=== PATIENT | female | born 1955 | race Caucasian/White ===

== ENCOUNTER 2017-01-26 16:55 | Emergency (ER) | payer SELFPAY ==
[~2017-01-26] VITALS: Ht 157.5 cm; Wt 75.0 kg
[2017-01-26 17:07] VITALS: BP 122/68; PULSE 99; RESP 20; TEMP 98.4; O2SAT 97
--- NOTE | 2017-01-26 20:05 | PD ---
HPI Chief Complaint: Edema Time Seen by Provider: 19:51 Travel History International Travel<30 days: No Contact w/Intl Traveler<30days: No Traveled to known affect area: No History of Present Illness HPI 61-year-old female complains of redness swelling bilateral lower extremity. Patient states that the symptoms started about 3 weeks ago. Patient was seen at a hospital outside the [facility] and was given prescription for clindamycin and Bactrim DS. Patient states that she finished the medications about 2 weeks ago. Patient states that the symptoms get worse since then. Patient denies any headache. Patient denies any chest pain or shortness of breath. Patient denies abdominal pain. Patient denies any focal weakness or numbness of extremity. Patient states that she has history of hypertension, diabetes, hyperlipidemia, chronic kidney disease, CHF, peripheral vascular disease and Raynaud's. Patient states that she does not have a local physician in [facility]. PFSH Social History Tobacco Use: No Allergies-Medications (Allergen,Severity, Reaction): Coded Allergies: cephalexin (Verified Allergy, Severe, Anaphylaxis, 01/26/17) penicillin G (Verified Allergy, Severe, Anaphylaxis, 01/26/17) vancomycin (Verified Allergy, Severe, EDEMA, 01/26/17) Reported Meds & Prescriptions Reported Meds & Active Scripts Active [Bactroban Oint] 1 Applic TOPICAL BID Bactrim DS (Sulfamethoxazole-Trimethoprim) 800-160 Mg Tab 1 Tab PO BID Clindamycin (Clindamycin HCl) 300 Mg Cap 300 Mg PO Q6H Review of Systems General / Constitutional: No: Fever Eyes: No: Visual changes HENT: No: Headaches Cardiovascular: No: Chest Pain or Discomfort Respiratory: No: Shortness of Breath Gastrointestinal: No: Abdominal Pain Genitourinary: No: Dysuria Musculoskeletal: Positive: Edema Skin: No Rash Neurologic: No: Weakness Psychiatric: No: Depression Endocrine: No: Polydipsia Hematologic/Lymphatic: No: Easy Bruising Physical Exam Narrative GENERAL: Well-nourished, well-developed patient. SKIN: Focused skin assessment warm/dry. HEAD: Normocephalic. EYES: No scleral icterus. No injection or drainage. NECK: Supple, trachea midline. No JVD or lymphadenopathy. CARDIOVASCULAR: Regular rate and rhythm without murmurs, gallops, or rubs. RESPIRATORY: Breath sounds equal bilaterally. No accessory muscle use. GASTROINTESTINAL: Abdomen soft, non-tender, nondistended. MUSCULOSKELETAL: Patient had +1 pitting edema lower extremity. Multiple lesions on the lower extremity associated with redness swelling. No induration and no discharge. Negative Homans sign. BACK: Nontender without obvious deformity. No CVA tenderness. Neurologic exam normal. Data Data Last Documented VS Vital Signs Date Time Temp Pulse Resp B/P (MAP) Pulse Ox O2 Delivery O2 Flow Rate FiO2 01/26/17 23:30 01/26/17 23:00 71 15 99 01/26/17 22:00 Room Air 01/26/17 17:07 98.4 Orders Orders Complete Blood Count With Diff (01/26/17 19:58) Comprehensive Metabolic Panel (01/26/17 19:58) B-Type Natriuretic Peptide (01/26/17 19:58) Prothrombin Time / Inr (Pt) (01/26/17 19:58) Act Partial Throm Time (Ptt) (01/26/17 19:58) Thyroid Stimulating Hormone (01/26/17 19:58) Chest, Single Ap (01/26/17 19:58) Iv Access Insert/Monitor (01/26/17 19:58) Ecg Monitoring (01/26/17 19:58) Oximetry (01/26/17 19:58) Clindamycin Inj (Cleocin Inj) (01/26/17 20:15) Ed Discharge Order (01/26/17 22:39) Labs Laboratory Tests Test 01/26/17 20:50 White Blood Count 8.3 TH/MM3 Red Blood Count 3.78 MIL/MM3 Hemoglobin 10.2 GM/DL Hematocrit 30.7 % Mean Corpuscular Volume 81.2 FL Mean Corpuscular Hemoglobin 27.0 PG Mean Corpuscular Hemoglobin Concent 33.3 % Red Cell Distribution Width 16.0 % Platelet Count 305 TH/MM3 Mean Platelet Volume 7.8 FL Neutrophils (%) (Auto) 73.9 % Lymphocytes (%) (Auto) 15.6 % Monocytes (%) (Auto) 6.1 % Eosinophils (%) (Auto) 3.9 % Basophils (%) (Auto) 0.5 % Neutrophils # (Auto) 6.1 TH/MM3 Lymphocytes # (Auto) 1.3 TH/MM3 Monocytes # (Auto) 0.5 TH/MM3 Eosinophils # (Auto) 0.3 TH/MM3 Basophils # (Auto) 0.0 TH/MM3 CBC Comment DIFF FINAL Differential Comment Prothrombin Time 10.2 SEC Prothromb Time International Ratio 0.9 RATIO Activated Partial Thromboplast Time 24.4 SEC Blood Urea Nitrogen 24 MG/DL Creatinine 0.69 MG/DL Random Glucose 98 MG/DL Total Protein 7.9 GM/DL Albumin 3.9 GM/DL Calcium Level 8.6 MG/DL Alkaline Phosphatase 88 U/L Aspartate Amino Transf (AST/SGOT) 31 U/L Alanine Aminotransferase (ALT/SGPT) 31 U/L Total Bilirubin 0.5 MG/DL Sodium Level 139 MEQ/L Potassium Level 3.7 MEQ/L Chloride Level 106 MEQ/L Carbon Dioxide Level 24.8 MEQ/L Anion Gap 8 MEQ/L Estimat Glomerular Filtration Rate 87 ML/MIN B-Type Natriuretic Peptide 12 PG/ML Thyroid Stimulating Hormone 3rd Gen 0.701 uIU/ML MDM Medical Decision Making Medical Screen Exam Complete: Yes Emergency Medical Condition: Yes Interpretation(s) 22:27 PM. Last Impressions Chest X-Ray 01/26/171957 Signed Impressions: Service Date/Time: Thursday, January 26, 2017 20:05 - CONCLUSION: No acute cardiopulmonary disease. Thor Morgan MD 22:27 PM. CBC within normal limit. CMP within normal limit. BNP 12. Differential Diagnosis Differential diagnosis including cellulitis, abscess. Narrative Course 61-year-old female with redness swelling infected lesion by lateral lower extremity. Patient was treated for the same 3 weeks ago. Clindamycin 300 mg IV given. Diagnosis Primary Impression: Cellulitis of lower extremity Qualified Codes: L03.119 - Cellulitis of unspecified part of limb Patient Instructions: General Instructions Additional Instructions: Clindamycin and Bactrim DS as directed. Bactroban ointment as directed. Follow -up with personal physician. Return if worse. Med/Other Pt SpecificInfo: Prescription(s) given Scripts [Bactroban Oint] No Conflict Check 1 APPLIC TOPICAL BID, #1 Prov: Shelton Fuller MD 01/26/17 Sulfamethoxazole-Trimethoprim (Bactrim DS) 800-160 Mg Tab 1 TAB PO BID for Infection, #20 TAB 0 Refills Prov: Shelton Fuller MD 01/26/17 Clindamycin (Clindamycin) 300 Mg Cap 300 MG PO Q6H for Infection, #40 CAP 0 Refills Prov: Shelton Fuller MD 01/26/17 Disposition: 01 DISCHARGE HOME Condition: Stable Shelton Fuller MD Jan 26, 2017 20:05
[2017-01-26] MEDS ORDERED: CLINDAMYCIN INJ 300 MG in SODIUM CHLORIDE 0.9% INJ 100 ML IV ONE (20:15)
--- NOTE | 2017-01-26 20:58 | RADRPT ---
EXAM DATE/TIME: 01/26/2017 20:05 [facility] COMPARISON: No previous studies available for comparison. INDICATIONS : Shortness of breath and bilateral leg swelling. MEDICAL HISTORY : Congestive heart failure. Hypertension Asthma SURGICAL HISTORY : None. ENCOUNTER: Initial ACUITY: 1 day PAIN SCORE: 0/10 LOCATION: Bilateral chest FINDINGS: The lungs are clear without infiltrate, nodule, or mass. There is no appreciable pleural effusion fo r technique. Heart and mediastinum are unremarkable. CONCLUSION: No acute cardiopulmonary disease. Thor Morgan MD on January 26, 2017 at 20:56 Board Certified Radiologist. This report was verified electronically.
[2017-01-26 21:00] VITALS: BP 138/80; PULSE 82; RESP 14; O2SAT 99
[2017-01-26 21:05] VITALS: BP 138/80; PULSE 82; RESP 15; O2SAT 98
[2017-01-26 21:36] LABS: AUTOMATED NEUTROPHIL # 6.1 TH/MM3 (1.8-7.7); BASOPHIL % 0.5 % (0.0-2.0); EOSINOPHIL # 0.3 TH/MM3 (0-0.4); EOSINOPHIL % 3.9 % (0.0-4.0); HEMATOCRIT 30.7 % (35.0-46.0); HEMO FLAGS DIFF FINAL; LYMPH % 15.6 % (9.0-44.0); LYMPHOCYTE # 1.3 TH/MM3 (1.0-4.8); MEAN CELL VOLUME 81.2 FL (80.0-100.0); MEAN CORPUSCULAR HGB CONC 33.3 % (32.0-36.0); MONO % 6.1 % (0.0-8.0); NEUT % 73.9 % (16.0-70.0); PLATELET COUNT 305 TH/MM3 (150-450); RED BLOOD COUNT 3.78 MIL/MM3 (4.00-5.30); WHITE BLOOD COUNT 8.3 TH/MM3 (4.0-11.0)
[2017-01-26 21:44] LABS: ALT (GPT) 31 U/L (10-53)
[2017-01-26 21:46] LABS: APTT (PATIENT) 24.4 SEC (24.3-30.1); INTERNATIONAL NORMALIZED RATIO 0.9 RATIO; PROTHROMBIN TIME - PATIENT 10.2 SEC (9.8-11.6)
[2017-01-26 21:54] LABS: ALKALINE PHOSPHATASE 88 U/L (45-117); TOTAL BILIRUBIN ADULT 0.5 MG/DL (0.2-1.0)
[2017-01-26 22:00] VITALS: BP 129/64; PULSE 76; RESP 17; O2SAT 98
[2017-01-26 22:01] LABS: ANION GAP 8 MEQ/L (5-15); AST (GOT) 31 U/L (15-37); BICARBONATE 24.8 MEQ/L (21.0-32.0); BLOOD UREA NITROGEN 24 MG/DL (7-18); CHLORIDE 106 MEQ/L (98-107); GLOMERULAR FILTRATION RATE 87 ML/MIN (>89); POTASSIUM 3.7 MEQ/L (3.5-5.1); SODIUM (NA) 139 MEQ/L (136-145)
[2017-01-26] MEDS ORDERED: BACTROBAN OINT TOPICAL (22:38)
[2017-01-26] MEDS ORDERED: BACT800T5 PO (22:38)
[2017-01-26] MEDS ORDERED: CLIN1CAP6 PO (22:38)
[2017-01-26 23:00] VITALS: BP 129/64; PULSE 71; RESP 15; O2SAT 99
== END 2017-01-26 23:40 | disposition home or self-care (01) ==
LOC: NEPD 16:55
DX: L03.119 Cellulitis of unspecified part of limb (principal); E11.8 Type 2 diabetes mellitus with unspecified complications; I11.0 Hypertensive heart disease with heart failure; I73.00 Raynaud's syndrome without gangrene; E78.5 Hyperlipidemia, unspecified; N18.9 Chronic kidney disease, unspecified
CPT/HCPCS: 71010; 80053; 83880; 84443; 85025; 85610; 85730; 96374

== ENCOUNTER 2017-02-13 19:12 | Emergency (ER) | payer MEDICAID ==
[~2017-02-13 19:12] MED LIST: DOXY100C PO
[2017-02-13 19:29] VITALS: BP 158/87; PULSE 103; RESP 18; TEMP 98.2; O2SAT 99
[2017-02-13 22:00] VITALS: BP 136/84; PULSE 94; RESP 16; O2SAT 100
[2017-02-13 23:00] VITALS: BP 132/76; PULSE 91; RESP 16; O2SAT 100
[2017-02-14] VITALS: BP 129/61; PULSE 80; RESP 16; O2SAT 100
[2017-02-14 03:30] VITALS: BP 157/80; PULSE 71; RESP 16; O2SAT 100
--- NOTE | 2017-02-14 05:30 | PD ---
HPI Chief Complaint: Numbness/Tingling Time Seen by Provider: 23:00 Travel History International Travel<30 days: No Contact w/Intl Traveler<30days: No Traveled to known affect area: No History of Present Illness HPI pt covered in scabs and feet face and was here and started on clindamycin po is alos using topical hydrocortisone cream she is walking and has no signs of worsening infection legs are symmetric. pt is sleeping comfortably PFSH Past Medical History Hx Anticoagulant Therapy: Yes (ASPIRIN) Anemia: Yes Arthritis: Yes Asthma: Yes Autoimmune Disease: Yes (Raynaud syndrome) Cardiovascular Problems: Yes (A-FIB) High Cholesterol: Yes Congestive Heart Failure: Yes Cerebrovascular Accident: Yes (X3) Coronary Artery Disease: Yes Diabetes: Yes Patient Takes Glucophage: No Diminished Hearing: No GERD: Yes Genitourinary: Yes (chronic renal issues; cystic bladder; ) Hypertension: Yes Integumentary: Yes (cellulitis ) Tetanus Vaccination: < 5 Years Influenza Vaccination: Yes Menopausal: Yes Past Surgical History Section: Yes (x3) Social History Alcohol Use: No Tobacco Use: No Substance Use: No Allergies-Medications (Allergen,Severity, Reaction): Coded Allergies: cephalexin (Verified Allergy, Severe, Anaphylaxis, 02/13/17) penicillin G (Verified Allergy, Severe, Anaphylaxis, 02/13/17) vancomycin (Verified Allergy, Severe, EDEMA, 02/13/17) Reported Meds & Prescriptions Reported Meds & Active Scripts Active Doxycycline Hyclate 100 Mg Cap 100 Mg PO BID 10 Days Review of Systems Except as stated in HPI: all other systems reviewed are Neg Skin: Positive Lesions, Positive Other (scabs evenly distributed on lower legs and face no acute infection) Physical Exam Narrative GENERAL: sleeping no signs of sepsis non toxic SKIN: Warm and dry. multiple HEAD: Atraumatic. Normocephalic. EYES: Pupils equal and round. No scleral icterus. No injection or drainage. ENT: No nasal bleeding or discharge. Mucous membranes pink and moist. NECK: Trachea midline. No JVD. CARDIOVASCULAR: Regular rate and rhythm. RESPIRATORY: No accessory muscle use. Clear to auscultation. Breath sounds equal bilaterally. GASTROINTESTINAL: Abdomen soft, non-tender, nondistended. Hepatic and splenic margins not palpable. MUSCULOSKELETAL: Extremities without clubbing, cyanosis, or edema. No obvious deformities. NEUROLOGICAL: Awake and alert. No obvious cranial nerve deficits. Motor grossly within normal limits. Five out of 5 muscle strength in the arms and legs. Normal speech. PSYCHIATRIC: Appropriate mood and affect; insight and judgment normal. Data Data Last Documented VS Vital Signs Date Time Temp Pulse Resp B/P (MAP) Pulse Ox O2 Delivery O2 Flow Rate FiO2 02/14/17 05:31 02/14/17 03:30 71 16 100 Room Air 02/13/17 19:29 98.2 Orders Orders Ed Discharge Order (02/14/17 05:32) Electrocardiogram (02/13/17 22:24) MDM Medical Decision Making Medical Screen Exam Complete: Yes Emergency Medical Condition: Yes Differential Diagnosis cellulitis vs autoimmune skin erosions Narrative Course pt sleeps through the night and in AM walks to bathroom fells much better and is d/c to follow up with her PCP Diagnosis Primary Impression: Skin infection Patient Instructions: General Instructions Disposition: 01 DISCHARGE HOME Condition: Romain Wilson MD Feb 14, 2017 05:30
--- NOTE | 2017-02-14 10:56 | EKG ---
Date Performed: 02/13/2017 Time Performed: 22:24:06 PTAGE: 61 years EKG: Sinus rhythm NORMAL ECG NO PREVIOUS TRACING DOCTOR: Renato Gaxiola Interpretating Date/Time 02/14/2017 10:54:36
== END 2017-02-14 05:46 | disposition home or self-care (01) ==
LOC: NEPC 19:12
DX: L08.9 Local infection of the skin and subcutaneous tissue, unspecified (principal); J45.909 Unspecified asthma, uncomplicated; I48.91 Unspecified atrial fibrillation; E11.9 Type 2 diabetes mellitus without complications; I10 Essential (primary) hypertension; Z79.01 Long term (current) use of anticoagulants
CPT/HCPCS: 93005; 99284